=== PATIENT | female | born 1960 | race Caucasian/White ===

== ENCOUNTER 2022-08-02 11:42 | Emergency (ER) | payer OTHER ==
[~2022-08-02] VITALS: Ht 167.6 cm; Wt 68.0 kg
[~2022-08-02 11:42] MED LIST: CALCIUM + VITA1 EAC1 PO; CARVEDILOL12.5 MG PO; CEPHALEXIN500 MG PO; LEVOTHYROXINE100 MCG PO; LEVOTHYROXINE112 MCG PO; LISINOPRIL10 MG PO; MULTI-VITAMIN1 EACH PO; NORCO 5-325 TA1 EACH PO; OMEPRAZOLE20 MG PO; SIMVASTATIN10 MG PO
[2022-08-02] MEDS ORDERED: NASAL DECONGEST30 MG PO (12:18)
[2022-08-02] MEDS ORDERED: AMOXICILLIN500 MG PO (12:18)
== END 2022-08-02 12:30 | disposition home or self-care (01) ==
LOC: ED 11:42
DX: H66.93 Otitis media, unspecified, bilateral (principal); I10 Essential (primary) hypertension; K21.9 Gastro-esophageal reflux disease without esophagitis; F17.200 Nicotine dependence, unspecified, uncomplicated; Z79.899 Other long term (current) drug therapy
CPT/HCPCS: 99282; A9270

== ENCOUNTER 2024-07-18 18:01 | Inpatient (IN) | payer OTHER ==
[~2024-07-18] VITALS: Ht 167.6 cm; Wt 60.0 kg
--- NOTE | ~2024-07-18 | DS ---
[facility] [address], [place] [address] Draft ADMISSION DATE: 07/18/2024 DISCHARGE DATE: 07/24/2024 REASON FOR ADMISSION: Perforated distal gastric ulcer. HISTORY OF PRESENT ILLNESS: This 64-year-old white woman complained persistently for several weeks of an epigastric band-like pain in the upper abdomen. At approximately 6:00 p.m. the day of admission, she had worsening and quite significant epigastric and bilateral subcostal pain. She presented to the emergency room and evaluated by Dr. Stone and known to have generalized peritonitis. A CT scan of the abdomen performed showed marked inflammation in the region of the duodenum and antrum with air bubbles highly suggestive of perforated ulcer. She is admitted for further evaluation and care. Other problems include smoking and a known history of esophageal reflux for which she takes Prilosec daily. She also has hypertension and hypothyroidism. She does not drink alcohol and takes no NSAIDs. She does smoke. PERTINENT PHYSICAL EXAMINATION: GENERAL: Pleasant white woman who did not look systemically toxic. She was uncomfortable. BMI was 21.3. NECK: Trachea is midline. CHEST: Clear. HEART: Regular without murmur. ABDOMEN: Somewhat distended with marked tenderness in epigastric area and tenderness elsewhere also. LABORATORY STUDIES: Showed white count of 12.2, hematocrit 33.7, and platelets 515,000. Chem profile was notable for a potassium of 2.8, creatinine 2.63, magnesium 1.7. HOSPITAL COURSE: The patient was considered to have perforated viscus, most likely peptic ulcer. Fluid administration was undertaken as well as attempts at correction of electrolytes. She was taken to operation on July 19, 2024 at approximately 11:00 p.m. Laparoscopy was performed, which showed generalized contamination in the upper abdomen and significant inflammatory changes. An ulcer was identified approximately 2 cm proximal to the pylorus itself. It was on the lesser curve of the stomach anteriorly oriented. Consideration was made for laparoscopic Janusz patch, however, it was deemed more advisable to perform open operation and she was confirmed for an upper midline laparotomy. Operation consisted of peritoneal lavage by laparoscopic approach followed PATIENT NAME: DERICK DE LA CRUZ DISCHARGE SUMMARY DATE OF : 58 REPORT #: [id number] PHYSICIAN: TAYLOR BARNETT MD PCP: ZION KNOTT PAC REPORT IS CONFIDENTIAL AND NOT TO BE RELEASED WITHOUT AUTHORIZATION [facility] [address], [place] [address] Draft by laparotomy with an omental patch (Janusz patch) securing the perforation. A drain was placed as well. She was maintained with a nasogastric tube for approximately 48 hours at which point, it was reviewed and she was additionally treated with Carafate via the nasogastric tube and subsequently orally as well as intravenous PPI medication. Uncertain of her status for H pylori, she was treated empirically for that including amoxicillin, (Pepto-Bismol) tablets and Flagyl. Her bowel function returned and nasogastric tube was removed and she was begun carefully on a diet, which included liquids and ultimately full liquids and low-fiber diet. By the day of discharge, she is ambulating well, the drain which had showed no sign of enteric drainage had been removed and she was doing well. Of special note, she did have persistence of hypokalemia and hypomagnesemia for which potassium and magnesium supplementation was implemented. She will be discharged home anticipating a plan to see me back in the office in four weeks or so. DISCHARGE MEDICATIONS: Include: 1. Amoxicillin 500 mg p.o. b.i.d., #14. 2. Flagyl 250 mg p.o. t.i.d. with meals, quantity #21, refill none. 3. Nicotine patch 21 mg transdermal daily #30, refill 3. 4. Flomax 0.4 mg p.o. daily, #30, no refill (the patient did have urinary retention twice). 5. Pepto-Bismol tablet 262 mg tablets 524 mg p.o. q.i.d. #28, refill none. 6. Carafate 1 g p.o. q.6 hours #120, refill 2. 7. Tylenol 500 mg 1-2 p.o. q.6 hours as needed for pain, #60. 8. She will continue with her home multivitamin, Tums tablets as needed, Synthroid 112 mcg p.o. daily, simvastatin 20 mg p.o. daily, losartan/ hydrochlorothiazide 100/12.5 one p.o. daily. 9. Loperamide 2 mg p.o. daily for diarrhea. 10. Omeprazole 20 mg p.o. daily. 11. Melatonin tablet 10 mg at bedtime as needed. DISCHARGE DIAGNOSES: 1. Perforated prepyloric gastric ulcer, status post laparoscopic with conversion to open Janusz patch (omental patch and placement of drain. 2. Smoking history. 3. Hypothyroidism. 4. Dyslipidemia. 5. Reflux symptoms. PATIENT NAME: DERICK DE LA CRUZ DISCHARGE SUMMARY DATE OF : 58 REPORT #: [id number] PHYSICIAN: TAYLOR BARNETT MD PCP: ZION KNOTT PAC REPORT IS CONFIDENTIAL AND NOT TO BE RELEASED WITHOUT AUTHORIZATION [facility] [address] [place], [place] [address] Draft MD SUSI Abreu/KINSEY /[id number] cc: Maryam Silverman MD Copies: ~ PATIENT NAME: DERICK DE LA CRUZ DISCHARGE SUMMARY DATE OF : 58 REPORT #: [id number] PHYSICIAN: TAYLOR BARNETT MD PCP: ZION KNOTT PAC REPORT IS CONFIDENTIAL AND NOT TO BE RELEASED WITHOUT AUTHORIZATION
[~2024-07-18 18:01] MED LIST changes: +AMOXICILLIN500 MG PO; +NASAL DECONGEST30 MG PO
[2024-07-18] MEDS ORDERED: SIMVASTATIN20 MG PO (18:18)
[2024-07-18] MEDS ORDERED: LOSARTAN-HCTZ1 EAC2 PO (18:19)
[2024-07-18] MEDS ORDERED: PANTOPRAZOLE SODIUM 40 MG/10 ML VIAL IV ONE (18:30)
[2024-07-18] MEDS ORDERED: HYDROmorphone HCL 1 MG/ML SYR IV ONE ×2 (18:30→19:15)
[2024-07-18] MEDS ORDERED: SODIUM CHLORIDE 0.9% 1,000 ML IV ONE (18:30)
[2024-07-18] MEDS ORDERED: ondansetron HCL 4 MG/2 ML VIAL IV ONE (18:30)
[2024-07-18 18:33] LABS: BASOPHILS 0.5 % (0-2); EOSINOPHILS 2.6 % (0-6); HEMATOCRIT 33.7 % (35.0-50.0); HEMOGLOBIN 11.2 g/dL (12.0-18.0); MCH 31.7 (27-36); MCHC 33.3 g/dl (30-36); MCV 95.2 fl (81-99); NEUTROPHILS 72.9 % (39-80); PLATELET COUNT 515 K/uL (140-440); RBC 3.54 M/ul (4.3-5.7); RDW 14.2 (10.5-15.0)
[2024-07-18 18:41] LABS: ALBUMIN 4.1 g/dL (3.4-5.0); ALBUMIN/GLOBULIN RATIO 0.89 (1.1-2.4); ANION GAP 20.8 (7-21); BILIRUBIN, TOTAL 0.4 ng/dL (0.2-1.0); BUN/CREATININE RATIO 12.92 (6.0-28.6); CREATININE, SERUM 2.63 mg/dL (0.55-1.02); POTASSIUM 2.8 mmol/L (3.5-5.1); PROTEIN, TOTAL 8.7 g/dL (6.4-8.2)
[2024-07-18] MEDS ORDERED: NS + 20 mEq KCl 1,000 ML IV ONE (20:00)
[2024-07-18] MEDS ORDERED: MEROPENEM 2,000 MG in SODIUM CHLORIDE 0.9% 250 ML IV ONE (20:45)
[2024-07-18] MEDS ORDERED: MAGNESIUM SULFATE 2 GM/50 ML BAG IV ONE (20:45)
[2024-07-18] MEDS ORDERED: MEROPENEM 1,000 MG VIAL IV ONE (20:54)
[2024-07-18 21:15] LABS: ABO O; RH NEGATIVE
[2024-07-18 21:16] LABS: ANTIBODY SCREEN NEGATIVE
[2024-07-18] MEDS ORDERED: FAMOTIDINE 20 MG/ 2 ML VIAL IV ONE (21:30)
[2024-07-18] MEDS ORDERED: FAMOTIDINE 20 MG/ 2 ML VIAL IV SCH (21:35)
[2024-07-18] MEDS ORDERED: LACTATED RINGER'S 1,000 ML IV SCH (21:45)
[2024-07-18] MEDS ORDERED: MORPHINE SULFATE 10 MG/ML VIAL IV PRN (21:45)
[2024-07-18] MEDS ORDERED: ondansetron HCL 4 MG/2 ML VIAL IV PRN (21:45)
[2024-07-18] MEDS ORDERED: fentaNYL citrate 100 MCG/2 ML VIAL ONE (21:48)
[2024-07-18] MEDS ORDERED: FAMOTIDINE 20 MG/ 2 ML VIAL ONE (21:48)
[2024-07-18] MEDS ORDERED: propofoL 200 MG/20 ML VIAL ONE (21:48)
[2024-07-18] MEDS ORDERED: ROCURONIUM BROMIDE 50 MG/5 ML SYR ONE (21:48)
[2024-07-18] MEDS ORDERED: SUGAMMADEX SODIUM 200 MG/2 ML ML ONE (21:48)
[2024-07-18] MEDS ORDERED: METOCLOPRAMIDE HCL 10 MG/2 ML SDV ONE (21:48)
[2024-07-18] MEDS ORDERED: DEXAMETHASONE SOD PHOS 4 MG/ML VIAL ONE (21:48)
[2024-07-18] MEDS ORDERED: LACTATED RINGER'S 1,000 ML IV ONE ×3 (21:48→23:04)
[2024-07-18] MEDS ORDERED: KETOROLAC TROMETHAMINE 30 MG/ML VIAL ONE (21:48)
[2024-07-18] MEDS ORDERED: ondansetron HCL 4 MG/2 ML VIAL ONE (21:48)
[2024-07-18] MEDS ORDERED: SUCCINYLCHOLINE IN 0.9% NACL 200 MG/10 ML SYRINGE ONE (21:48)
[2024-07-18] MEDS ORDERED: LIDOCAINE HCL 4% 5 ML AMP ONE (21:48)
[2024-07-18] MEDS ORDERED: MIDAZOLAM HCL 2 MG/2 ML VIAL ONE (21:49)
[2024-07-18] MEDS ORDERED: MEROPENEM 1,000 MG in SODIUM CHLORIDE 0.9% 100 ML IV SCH (22:00)
[2024-07-18] MEDS ORDERED: PHENYLEPHRINE HCL 10 MG/ML VIAL ONE (22:32)
[2024-07-18] MEDS ORDERED: HYDROCORTISONE SOD SUCCINATE 100 MG/2 ML VIAL ONE (22:32)
[2024-07-18] MEDS ORDERED: DIGOXIN 500 MCG/2 ML AMP ONE (22:32)
[2024-07-18] MEDS ORDERED: MORPHINE SULFATE 10 MG/ML VIAL ONE (22:39)
[2024-07-18] MEDS ORDERED: SEVOFLURANE 250 ML BTL ONE (22:45)
[2024-07-18] MEDS ORDERED: ACETAMINOPHEN 1,000 MG/100 ML VIAL ONE (23:20)
[2024-07-18] MEDS ORDERED: ATROPINE SULFATE 1 MG/ML VIAL ONE (23:22)
[2024-07-19] VITALS (15 sets, daily range): BP systolic 96–157; BP diastolic 56–80
--- NOTE | 2024-07-19 00:15 | NUR ---
Patient arrives from OR with PACU RNs. Patient drowsy but beginning to wake. O2 titrated per PACU, PRN pain medications per PACU. Assessment complete. Dr Robb at bedside.
[2024-07-19] MEDS ORDERED: PANTOPRAZOLE SODIUM 40 MG/10 ML VIAL IV SCH (00:22)
[2024-07-19] MEDS ORDERED: MORPHINE SULFATE 10 MG/ML VIAL IV PRN (00:30)
[2024-07-19] MEDS ORDERED: droPERidol 5 MG/2 ML VIAL IV PRN (00:30)
[2024-07-19] MEDS ORDERED: PROCHLORPERAZINE EDISYLATE 10 MG/2 ML VIAL IV PRN (00:30)
[2024-07-19] MEDS ORDERED: IBLOOD GLUCOSE TEST STRIP 1 EA TEST VI PRN (00:30)
[2024-07-19] MEDS ORDERED: METOCLOPRAMIDE HCL 10 MG/2 ML SDV IV PRN (00:30)
[2024-07-19] MEDS ORDERED: fentaNYL citrate 50 MCG/ML SDV IV PRN (00:30)
[2024-07-19] MEDS ORDERED: LIDOCAINE 2% VISCOUS 6 ML SYR TOP ONE (00:30)
[2024-07-19] MEDS ORDERED: ondansetron HCL 4 MG/2 ML VIAL IV PRN (00:30)
[2024-07-19] MEDS ORDERED: NICOTINE 21 MG/24 HR 1 EA TDSY TD SCH (00:30)
[2024-07-19] MEDS ORDERED: ACETAMINOPHEN 1,000 MG/100 ML VIAL IV PRN (00:30)
[2024-07-19] MEDS ORDERED: NALOXONE HCL 0.4 MG SYR IV PRN (00:30)
[2024-07-19] MEDS ORDERED: ALBUTEROL SULFATE 0.083% 3 ML VIAL INH PRN (00:45)
[2024-07-19] MEDS ORDERED: hydrALAZINE HCL 20 MG/ML VIAL IV PRN (00:45)
[2024-07-19] MEDS ORDERED: MEROPENEM 1,000 MG in SODIUM CHLORIDE 0.9% 100 ML IV SCH ×2 (01:00→06:00)
--- NOTE | 2024-07-19 01:15 | NUR ---
Care assumed by this RN. IVF infusing per order. VSS. Patient on 4L OM. NGT to LIWS. Denies pain at this time, drowsy. IV protonix administered.
--- NOTE | 2024-07-19 01:29 | NUR ---
07/19/24 0129 Sommer Saldana 0012- PT BROUGHT TO ROOM 128 IN CCU FOR RECOVERY. PT HAS OPA IN PLACE BUT IS REACTING TO STIMLUI AND MOVING UPPER EXTREMITIES. OPA REMOVED ON ARRIVAL. O2 AT 10L PER MASK, PT IS REACTIVE BUT UNABLE TO ANSWER QUESTIONS AT THIS TIME. NG TUBE TO LEFT NARE, SET TO LOW INTERMITTENT SUCTION. ABD SOFT, NON DISTENDED. DALE DRAIN WITH SEROSANGINOUS FLUID, MIDLINE INCISION DRESSING WITH SMALL AMOUNT OF SHADOWING TO THE CENTER. TRAN CATHETER IN PLACE AND SECURED, DRAINING CLEAR YELLOW URINE. PT PLACED ON ALL MONITORS. CCU RN AT BEDSIDE. 0015- TYLENOL STARTED, PT HAVING SOME GRIMACING AND REACHING FOR ABD. PT EDUCATED ON INCISION AND ENCOURAGED TO NOT PUSH ON STOMACH AT THIS TIME. 0025- PT PLACED ON ROOM AIR. MASK APPEARS TO BE AGITATING PT WITH NG TUBE IN PLACE. WILL CONTINUE TO MONITOR. PT REPORTS PAIN WORSENING. TYLENOL CONTINUES TO INFUSE. 0032- PT O2 SATS DOWN TO 86% ON ROOM AIR. DR BARNETT AT BEDSIDE. DESPITE PT DEEP BREATHING, O2 SATS NOT IMPROVING. ORDERS RECEIVED FROM DR BARNETT. OXYMASK PLACED TO SEE IF NOT HAVING A SOLID MASK WILL HELP ALLEVIATE AGITATION. 0042- PT REPORTS 10/10 PAIN, IS RESTLESS. O2 SATS MAINTAINING ON 6L PER OXYMASK. MEDICATED WITH MORPHINE. 0057- PT REPORTS RELIEF FROM MORPHINE TO 7/10, MORE TOLERABLE BUT WOULD LIKE PAIN LOWER. MEDICATED WITH 2ND DOSE OF MORPHINE. 0103- PT REPORTS PAIN IS TOLERABLE AND SHE IS "READY FOR A NAP". ENCOURAGED PT TO COUGH AND DEEP BREATH AND SPLINT ABD WITH PILLOW. EFRA RN AT BEDSIDE, REPORT UPDATED FROM INITIAL REPORT. CARE OF PT TURNED OVER AT THIS TIME.
[2024-07-19] MEDS ORDERED: MEROPENEM 1,000 MG VIAL IV ONE (01:48)
--- NOTE | 2024-07-19 02:05 | NUR ---
IV ABX infusing per order. NGT to LIWS, no drainage noted. Miguel drain in place, serousanguinous drainage noted. Midline incision C/D/I with lidia and steri strips, adhesive surgical dressing. Pt titrated to 6L OM by RT as continuing to drop <90%.
--- NOTE | 2024-07-19 02:23 | NUR ---
Patient apneic at this time, spo2 dropping to 79%, this RN into room and patient awakened to breathe. SPO2 increases to >90% on 6L NC per RT.
--- NOTE | 2024-07-19 03:30 | NUR ---
Patient continues to have apneic periods with spo2 dropping as low as 79%, patient awakened and spo2 returns above 90%. On 6L OM.
--- NOTE | 2024-07-19 04:12 | NUR ---
In to round on patient and remind her to keep her OM on. SPO2 remains 96% while awake and O2 in place. Pt denies needs, drowsy and requires reorienting to situation when wakes.
[2024-07-19 05:36] LABS: BASOPHILS 0.1 % (0-2); EOSINOPHILS 0.1 % (0-6); HEMATOCRIT 28.5 % (35.0-50.0); HEMOGLOBIN 9.6 g/dL (12.0-18.0); LYMPHOCYTES 1.2 % (24-44); MCH 32.6 (27-36); MCHC 33.7 g/dl (30-36); MCV 96.7 fl (81-99); MONOCYTES 1.1 % (0-12); NEUTROPHILS 97.5 % (39-80); PLATELET COUNT 367 K/uL (140-440); RBC 2.95 M/ul (4.3-5.7); RDW 14.5 (10.5-15.0)
[2024-07-19] MEDS ORDERED: SUCRALFATE 1 GM TAB PT SCH (06:00)
[2024-07-19 06:02] LABS: ALBUMIN 2.9 g/dL (3.4-5.0); ALBUMIN/GLOBULIN RATIO 0.88 (1.1-2.4); ANION GAP 17.5 (7-21); BILIRUBIN, TOTAL 0.2 ng/dL (0.2-1.0); BUN/CREATININE RATIO 13.22 (6.0-28.6); CALCIUM 7.9 mg/dL (8.5-10.1); CREATININE, SERUM 1.89 mg/dL (0.55-1.02); POTASSIUM 3.5 mmol/L (3.5-5.1); PROTEIN, TOTAL 6.2 g/dL (6.4-8.2)
--- NOTE | 2024-07-19 06:10 | NUR ---
SCHEDULED MED PROVIDED. NG TUBE SUCTION PAUSED FOR MED ABSORBTION. PT RESTING IN BED, EYES CLOSED. RR EVEN, UNLABORED. CALL LIGHT IN REACH.
--- NOTE | 2024-07-19 08:45 | NUR ---
IN PATIENT'S ROOM FOR AM ASSESSMENT, AND VITALS. CHEST XRAY DONE THIS AM. PT HAS NGT TO LEFT NARE. PT ON 6 L OXYMASK UPON ARRIVAL TO ROOM BUT THIS WAS TAKEN OFF. WHEN PT DOZES BAACK TO SLEEP, SP02 DOWN TO LOW AT 86%, THEREFORE 2 L NC PLACED BACK. PT REPORTS 6/10 PAIN IN ABDOMEN AND NOTES IT IS BETTER THAN IT WAS YESTERDAY. HR IN THE 70s.
--- NOTE | 2024-07-19 09:08 | NUR ---
ALERT AND ORIENTED IN BED. HAS AN NG TUBE IN PLACE. STATES SHE LIVES IN APARTMENT WITH GRANDSON AND HIS GIRLFRIEND. SHE HAS NO STAIRS. SHE STATES SHE HAS NO DME. SHE IS ABLE TO DRIVE AT [place]. PATIENT HAS NO FINANCIAL ISSUES WITH PAYING UTILITIES, BUYING FOOD OR OBTAINING MEDICATIONS. STATES SHE HAS NO KNOWN NEEDS FOR DC AT THIS TIME.
--- NOTE | 2024-07-19 09:57 | NUR ---
REPORT FROM ROBERTA CCU RN. PATIENT MOVED VIA BED TO MED SURG ROOM 109.
[2024-07-19 10:25] LABS: BILIRUBIN, URINE NEGATIVE (negative); BLOOD/HGB, URINE MODERATE (Negative); KETONE, URINE NEGATIVE (Negative); LEUK ESTERASE, URINE SMALL (negative); NITRITE, URINE NEGATIVE (negative)
--- NOTE | 2024-07-19 10:29 | NUR ---
PT HAND OFF RECEIEVED FROM M/S CHARGE. PT ORIENTED TO ROOM AND THIS RN. PT NG TUBE PLACEMENT CHECKED. PT SCDS INPLACE WITH WITH IV PATENT AND FLUIDS RUNNING PT REQUESTED SOCKS AND HAS NO OTHER CONCERNS AT THIS TIME. PT CALL LIGHT WITHIN REACH.
[2024-07-19 10:33] LABS: BACTERIA, URINE RARE /hpf (negative); CRYSTALS, URINE NONE SEEN (0-1+); EPITHELIAL CELLS, URINE TRANSITIONAL 1+ /lpf (0-1+); WHITE BLOOD CELLS, URINE 21-40 /HPF (0-5)
[2024-07-19 10:34] LABS: CASTS, URINE NONE SEEN \\lpf; COLLECTION TYPE, URINE CATH; REFLEX CULTURE, URINE Yes (No)
--- NOTE | 2024-07-19 11:00 | NUR ---
ANIBAL AND ASSOCIATE IN TO SEE PT AND DISCUSS PLAN OF CARE. PT'S ICE CHIPS REFRESHED PER REQUEST. CALL LIGHT WITHIN REACH.
--- NOTE | 2024-07-19 11:01 | NUR ---
PT'S O2 SAT ON CPOX 98% ON 2 L PER NC. O2 DECREASED TO 1 L PER NC AT THIS TIME.
--- NOTE | 2024-07-19 13:40 | NUR ---
UR CLINICAL REVIEW: [facility] 07/18/24 @ 2136 ORDER [facility] FAXED FOR REVIEW DISCHARGE TO HOME WHEN STABLE 07/21/24
--- NOTE | 2024-07-19 14:05 | NUR ---
VISITED DURING SPIRITUAL CARE ROUNDS. PT APPEARED TO BE SLEEPING. DID NOT DISTURB. PROVIDED PRAYER.
--- NOTE | 2024-07-19 14:11 | NUR ---
PATIENT IN BED AT THIS TIME. PODIATRY DOCTOR CHARTED VITALS AND I&O'S. CALL LIGHT WITHIN REACH, NO FURTHER NEEDS AT THIS TIME.
--- NOTE | 2024-07-19 15:39 | NUR ---
CALL TO SURGERY TO SEND DR. BARNETT A MESSAGE ABOUT PATIENT'S ABDOMINAL PAIN.
--- NOTE | 2024-07-19 15:50 | NUR ---
THIS NURSE IN TO ASSESS PT, PT C/O INCREASED PAIN. DELMAR INTACT DRAINING SM AMT OF SEROSANGUANOUS DRAINAGE. MIDLINE ABD INCISION DRESSING WITH SM AMT OF OLD SEROSANGUANOUS DRAINAGE. NG TUBE SECURED AND DRAINING SM AMT OF YELLOW/GREEN DRAINAGE PER LIWS. CALL LIGHT WITHIN REACH. FAMILY IN ROOM.
--- NOTE | 2024-07-19 16:00 | NUR ---
DR ANIBAL FLORES IN TO ASSESS PT D/T INCREASED PAIN. NO NEW ORDERS AT THIS TIME. DAT LIGHT WITHIN REACH.
--- NOTE | 2024-07-19 16:35 | NUR ---
PHARMACIST IN TO SPEAK WITH PT REGARDING MEDICATIONS. FAMILY AT BEDSIDE. CALL LIGHT WITHIN REACH. PT TAKING ICE CHIPS SPARINGLY FOR COMFORT.
[2024-07-19] MEDS ORDERED: IMODIUM A-D2 M2 PO (16:49)
[2024-07-19] MEDS ORDERED: PRILOSEC OTC20 MG PO (16:49)
[2024-07-19] MEDS ORDERED: MELATONIN10 M2 PO (16:49)
--- NOTE | 2024-07-19 16:49 | NUR ---
MED REC COMPLETE
--- NOTE | 2024-07-19 18:10 | NUR ---
PT UP AMBULATING IN QUIROZ WITH FWW AND 1 PERSON ASSIST TO MANAGE IV. PT AMBULATED TO THE END OF THE QUIROZ AND BACK AND TOLERATED WELL. PT ASSISTED BACK TO BED. NG RETURNED TO LIWS, DELMAR INTACT, O2 AT 1.5L PER NC WITH SAT 92%. PT HAS NO REQUESTS AT THIS TIME. CALL LIGHT WITHIN REACH. SCDS ON.
--- NOTE | 2024-07-19 18:56 | NUR ---
PATIENT IN BED AT THIS TIME. CASINO HOST CHARTED VITALS AND I&O'S. CALL LIGHT WITHIN REACH, NO FURTHER NEEDS AT THIS TIME.
--- NOTE | 2024-07-19 19:35 | NUR ---
REPORT RECEIVED FROM ROSAMARIA MELTON. pt RESTING IN THE BED. pt DENIES ANY NEEDS AT THIS TIME. CALL LIGHT WITHIN REACH.
--- NOTE | 2024-07-19 19:58 | HP ---
[facility] [address], [place] [address] Signed ADMISSION DATE: 07/18/2024 EMERGENCY ROOM PHYSICIAN: Dr. Stone. PROBLEM: Probable perforated duodenal ulcer. HISTORY OF PRESENT ILLNESS: This 64-year-old white woman has had complaints persistently for several weeks of a bandlike pain in the upper abdomen. At approximately 6:00 p.m., she had worsening in quite significant epigastric and bilateral subcostal pain. She presented to the emergency room. She was evaluated by Dr. Best and noted to have generalized peritonitis. A CT scan of the abdomen was performed, which showed marked inflammation in the region of the duodenum and antrum of the stomach with air bubbles highly suggestive of perforated ulcer. She was admitted for further evaluation and care. Other problems include hypertension, gastroesophageal reflux and history of hypothyroidism. She has undergone thyroidectomy in the past as well as bilateral tubal ligation. She does not use alcohol. Uses no drugs on a routine basis. She does smoke. MEDICATIONS: Her current medicines include Sudafed, simvastatin, losartan, lisinopril, a multivitamin, calcium supplement, and Synthroid 112 mcg daily. SOCIAL HISTORY: She lives alone though some grandchildren have come to live with her lately. She works at an [employer] locally. She is accompanied by her son. REVIEW OF SYSTEMS: She denies any shortness of breath or chest pain. Her main pain is bandlike across the upper abdomen. PHYSICAL EXAMINATION: GENERAL: Pleasant white woman, who does not look systemically toxic. It is uncomfortable. Her BMI is 21.3. NECK: Trachea is midline. CHEST: Shows normal respiratory excursion. Lungs are clear. HEART: Regular without murmur. ABDOMEN: Somewhat distended. She has marked tenderness in epigastric area, but tenderness throughout the abdomen as well. Electronically Signed By: TAYLOR BARNETT MD 07/19/241957 PATIENT NAME: DERICK DE LA CRUZ HISTORY AND PHYSICAL DATE OF : 58 REPORT #: [id number] PHYSICIAN: TAYLOR BARNETT MD PCP: ZION KNOTT PAC REPORT IS CONFIDENTIAL AND NOT TO BE RELEASED WITHOUT AUTHORIZATION [facility] [address], [place] [address] Signed EXTREMITIES: Show no clubbing, cyanosis, or edema. LABORATORY STUDIES: Show a white count of 12.2, hematocrit 33.7, platelets 515,000. Chem profile notable for a potassium of 2.8 with potassium administration underway. Her creatinine is 2.63. Her magnesium is 1.7. Magnesium repletion underway as well. Liver enzymes are normal. Lipase 44. Urinalysis pending. CT scan was reviewed in detail with previous findings noted. Official report describes irregular and mural thickening of the gastric antrum and proximal duodenum with hypodensity in the anterior wall and trace free air in the gastrohepatic space concerning for perforated ulcer though location not specified. She had small volume of the intraabdominal fluid. ASSESSMENT AND PLAN: The patient has had persistent upper abdominal pain highly suggestive of peptic disease and now has exacerbation versus the situation with marked inflammation of the upper abdomen including the duodenum and antrum. This may represent a perforated duodenal ulcer or even a gastric ulcer for which operative management is appropriate. Her creatinine is elevated, likely related to dehydration and potassium low, and magnesium also low, both being repleted at this time. Broad-spectrum antibiotics have been initiated (meropenem and Pepcid) administered and plans are being made for laparoscopy and peritoneal lavage, possible laparoscopic management of perforated viscus. This may require open operation. The risk of bleeding, infection, failure of diagnosis, missed diagnosis, need for other indicated procedures and so forth was reviewed in detail. She and her son understand and wished to proceed. MD SUSI Abreu/OGL /[id number] cc: Dr. Chase Lopez Electronically Signed By: TAYLOR BARNETT MD 07/19/241957 PATIENT NAME: DERICK DE LA CRUZ HISTORY AND PHYSICAL DATE OF : 58 REPORT #: [id number] PHYSICIAN: TAYLOR BARNETT MD PCP: ZION KNOTT PAC REPORT IS CONFIDENTIAL AND NOT TO BE RELEASED WITHOUT AUTHORIZATION [facility] [address] [place] [id number] Signed Copies: ~ Electronically Signed By: TAYLOR BARNETT MD 07/19/241957 PATIENT NAME: DERICK DE LA CRUZ HISTORY AND PHYSICAL DATE OF : 58 REPORT #: [id number] PHYSICIAN: TAYLOR BARNETT MD PCP: ZION KNOTT PAC REPORT IS CONFIDENTIAL AND NOT TO BE RELEASED WITHOUT AUTHORIZATION
[2024-07-19] MEDS ORDERED: FAMOTIDINE 20 MG/ 2 ML VIAL IV SCH (21:00)
--- NOTE | 2024-07-19 21:00 | NUR ---
ASSESSMENT AND VITAL SIGNS DONE. SCHEDULED MEDS ADMINISTERED. NG TUBE SET TO LOW INTERMITTENT SUCTION. TRAN EMPTIED. CATHETER CARE DONE. pt DENIES ANY OTHER NEEDS AT THIS TIME. CALL LIGHT WITHIN REACH. IVF INFUSING PER ORDER.
--- NOTE | 2024-07-19 23:24 | NUR ---
pt REQUESTS WARM PACK FOR HER BACK. pt RESTING IN THE BED. pt DENIES ANY OTHER NEEDS AT THIS TIME. CALL LIGHT WITHIN REACH.
[2024-07-20] VITALS (10 sets, daily range): BP systolic 157–179; BP diastolic 68–89
--- NOTE | 2024-07-20 01:20 | NUR ---
IN RM TO HANG IV ABX. pt REQUEST PRN PAIN MEDS. pt C/O 01/10 PAIN. PRN PAIN MEDS ADMINISTERED. pt DENIES ANY OTHER NEEDS AT THIS TIME. CALL LIGHT WITHIN REACH.
--- NOTE | 2024-07-20 01:30 | NUR ---
MD CALLED DUE TO pt NEEDING TO FREQUENTLY GET UP TO PEE. pt HAVING A POST RESIDUAL VOID OF 995 mL. NEW ORDERS PLACED FOR TRAN AND FOR THE CATHETER TO REMAIN IN PLACE.
--- NOTE | 2024-07-20 03:42 | NUR ---
pt RESTING IN THE BED WITH EYES CLOSED. RR EVEN AND UNLABORED. CALL LIGHT WITHIN REACH.
[2024-07-20 05:49] LABS: BASOPHILS 0.2 % (0-2); EOSINOPHILS 4.2 % (0-6); HEMATOCRIT 26.7 % (35.0-50.0); HEMOGLOBIN 9.1 g/dL (12.0-18.0); LYMPHOCYTES 8.1 % (24-44); MCH 32.6 (27-36); MCHC 34.1 g/dl (30-36); MCV 95.5 fl (81-99); MONOCYTES 3.4 % (0-12); NEUTROPHILS 84.1 % (39-80); PLATELET COUNT 379 K/uL (140-440); RBC 2.79 M/ul (4.3-5.7); RDW 14.8 (10.5-15.0)
--- NOTE | 2024-07-20 05:53 | NUR ---
pt RESTING IN THE BED. ASSESSMENT AND VITAL SIGNS DONE. RESTED THROUGH OUT THE NIGHT. pt C/O 8/10 PAIN. PRN PAIN MEDS ADMINISTERED. pt DENIES ANY OTHER NEEDS AT THSI TIME. CALL LIGHT WITHIN REACH. DELMAR DRAINED.
[2024-07-20 06:14] LABS: ANION GAP 17.7 (7-21); BUN/CREATININE RATIO 14.52 (6.0-28.6); CALCIUM 8.5 mg/dL (8.5-10.1); CREATININE, SERUM 1.79 mg/dL (0.55-1.02); POTASSIUM 2.7 mmol/L (3.5-5.1)
--- NOTE | 2024-07-20 07:23 | NUR ---
RECIEVED MORNING REPORT FROM GERONIMO ACUÑA. PT LAYING IN BED SLEEPING WITH EYES CLOSED AND CHEST RISE EQUAL BILAT. RN REPORTED PT DID RECIEVE MEDICATIONS FOR PAIN CONTROL EARLY THIS MORNING (SEE EMAR) PT CURRENTLY HAS NO NEEDS AT THIS TIME. PT CALL LIGHT WITHIN REACH.
[2024-07-20] MEDS ORDERED: HYDROmorphone HCL 2 MG TAB PO PRN (08:45)
[2024-07-20] MEDS ORDERED: ACETAMINOPHEN 500 MG TAB PO PRN (08:45)
[2024-07-20] MEDS ORDERED: POTASSIUM CHLORIDE 40 MEQ in DEXTROSE 5% 250 ML IV ONE (08:45)
[2024-07-20] MEDS ORDERED: BISMUTH SUBSALICYLATE 262 MG CHEW PO SCH (09:00)
[2024-07-20] MEDS ORDERED: PANTOPRAZOLE SODIUM 40 MG TABEC PO SCH (09:00)
[2024-07-20] MEDS ORDERED: AMOXICILLIN 500 MG CAP PO SCH (09:00)
--- NOTE | 2024-07-20 09:36 | NUR ---
PATIENT IN BED RESTING AT THIS TIME. VITALS AND I&O'S DONE AND CHARTED. RN IN ROOM AT THIS TIME. CALL LIGHT IN REACH. NO FURTHER NEEDS AT THIS TIME.
--- NOTE | 2024-07-20 09:41 | NUR ---
Spoke with Kaci. She denies needs. NG tube was removed by Dr. nelson. Vivar remains in place. Pt denies needs. Plans on dc to go to home with grandson and his girlfriend to her home. They all live together. Pt states jillian will assist her if needed. Son lives 2 houses away.
--- NOTE | 2024-07-20 09:42 | NUR ---
CLEO FROM DISCHARGE PLANNING IN TO VISIT WITH PT. PT STATED PAIN WAS 7/10, MED GIVEN. DR BARNETT IN TO SEE PT EARLIER AND DC'D PT'S NG TUBE. PT HAS O2 ON AT 3.5L PER NC. ENCOURAGING PT TO USE HER INCENTIVE SPIROMETER HOURLY. PT SITTING UP IN BED WITH NO REQUESTS AT THIS TIME. PT HAS DELMAR TO R) SIDE DRAINING SEROSANGUANOUS DRAINAGE. CALL LIGHT WITHIN REACH.
--- NOTE | 2024-07-20 10:44 | NUR ---
VISITED DURING SPIRITUAL CARE ROUNDS. PT IN OVERALL GOOD SPIRITS, NO IMMEDIATE SIGNS OF ANXIETY. TRAVELING ACCOUNTANT PROVIDED SUPPORTIVE PRESENCE, HOSPITALITY, PRAYER, FACILITATED INTERACTION WITH THERAPY ANIMAL. PT EXPRESSED GRATITUDE, NICKOLAS, HOPE.
--- NOTE | 2024-07-20 11:00 | NUR ---
TRAN CATHETER DC'D, PT TOLERATED WELL. PT UP AMBULATING IN QUIROZ, WALKED TO END OF QUIROZ AND BACK WITH FWW, AND O2 TOLERATED WELL. PT O2 AT 5L PER NC WITH O2 SAT 92%. PT ASSISTED TO SIT IN CHAIR WITH LEGS ELEVATED. NO REQUESTS AT THIS TIME. CALL LIGHT WITHIN REACH.
--- NOTE | 2024-07-20 11:40 | OR ---
[facility] [address], [place] [address] Signed DATE OF OPERATION: 07/19/2024 SURGEON: Taylor Barnett MD TIME: 12:03 a.m. PREOPERATIVE DIAGNOSIS: Perforated duodenal ulcer with generalized peritonitis. POSTOPERATIVE DIAGNOSIS: Perforated prepyloric ulcer with generalized peritonitis. PROCEDURES: 1. Laparoscopy with peritoneal lavage. 2. Conversion to laparotomy with omental patch of 1 cm prepyloric ulcer (Janusz patch). ANESTHESIA: General endotracheal, Taylor Block CRNA. INDICATIONS: This 64-year-old white woman has had upper abdominal pain in a bandlike configuration for the past week or more. She had sudden onset of severe pain this evening at about 6 o'clock and presented to the emergency room. Evaluation by Dr. Stone included a CT scan of the abdomen showing marked inflammation at the region of the duodenum and antrum of the stomach with free air bubbles. She had generalized peritonitis on clinical exam. She has been fluid resuscitated, given intravenous antibiotic meropenem and now to undergo operation. Quite notably, she had dehydration with a creatinine of 2.65, a low potassium of 2.7 and magnesium of 1.7. Resuscitation and correction of these deficits have been undertaken concurrent to preparation for the OR. The patient and her son understand the risk of bleeding, infection, failure to cure the problem by the intended method of Janusz patch, and other unforeseen complications and they wished to proceed. FINDINGS: A laparoscopic evaluation was undertaken showing considerable amount of turbid intraabdominal fluid. A perforation of the prepyloric area was noted about 1 cm in size. It was about 2 cm proximal to the pylorus proper.Given the extent of inflammation so forth, a laparoscopic Janusz patch was deemed Electronically Signed By: TAYLOR BARNETT MD 07/20/24 1140 PATIENT NAME: DERICK DE LA CRUZ OPERATIVE REPORT DATE OF : 58 REPORT #: [id number] PHYSICIAN: TAYLOR BARNETT MD PCP: ZION KNOTT PAC REPORT IS CONFIDENTIAL AND NOT TO BE RELEASED WITHOUT AUTHORIZATION [facility] [address], [place] [address] Signed inadvisable on this occasion, therefore, conversion of open laparotomy was performed. This allowed for secure placement of a Janusz patch over the perforation. There is secondary inflammation of the gallbladder and liver edges as might be expected. A drain was placed. Leak testing showed no sign of leakage of air upon submersion of the stomach and duodenum with insufflation of the nasogastric tube. DESCRIPTION OF PROCEDURE: The patient was brought to the operating room, given a general endotracheal anesthetic. A Vivar catheter was placed. Preoperative antibiotics were given as described. The abdomen was prepared for chlorhexidine solution and draped sterilely. An infraumbilical incision was made and using an open Víctor cannula technique pneumoperitoneum was achieved to a level of 14 mmHg of carbon dioxide gas. Intra-abdominal inspection showed no sign of fecal contamination, but a considerable amount of inflammatory fluid was noted in the upper abdomen. Irrigation was undertaken. The liver edge obscuring the lesser sac was elevated and a perforation of the prepyloric area was noted. It was estimated to be about 1 cm in size. Considerable inflammatory changes and plastic like texture of the distal antrum and pylorus was noted. Additional trocar was placed to allow for manipulation and irrigation. Given the extent of her problem it was less likely that a laparoscopic approach would be as effective as an open one and on that basis, conversion to open operation was undertaken. The trocars were removed. The trocar incisions were extended to the upper midline laparotomy. A Bookwalter retractor was placed. Irrigation was undertaken and better characterization of the perforation noted. A rubberized thickened area of the antrum and pylorus was noted. Mobilization of a segment of viable omentum off the transverse colon was undertaken securing it well from a vascular perspective. It was completely viable. The omentum was used to patch the hole without closure of the hole as it would not likely hold suture for closure anyway. Approximately eight such 2-0 silk sutures were used to patch the perforation. Submersion of the repair under saline with insufflation through the nasogastric tube was undertaken. This did show some leakage and therefore, additional sutures were secured with the patch. Ultimately, a complete occlusion of the defect was noted. Distention of the stomach to approximately 250 mL of air was accomplished. The nasogastric tube was applied to suction and additional irrigation undertaken more fully. Through a right-sided stab incision a 7 mm flat cheyenne drain was placed. The drain was secured to the skin with nylon suture and trimmed to appropriate length and placed cephalad to the omental patch. The midline fascia was reapproximated with running bidirectional #1 PDS suture. The subcutaneous tissue was irrigated and the skin closed with a skin clip device. An Acticoat dressing was applied. She was extubated in the operating room and taken to recovery room in good condition having suffered no complication. Blood loss was less than 50 mL. Sponge, needle, and instrument counts reported as correct x3. Electronically Signed By: TAYLOR BARNETT MD 07/20/24 1140 PATIENT NAME: DERICK DE LA CRUZ OPERATIVE REPORT DATE OF : 58 REPORT #: [id number] PHYSICIAN: TAYLOR BARNETT MD PCP: ZION KNOTT PAC REPORT IS CONFIDENTIAL AND NOT TO BE RELEASED WITHOUT AUTHORIZATION [facility] [address] [address] Signed MD SUSI Abreu/KINSEY /[id number] cc: Dr. Danuta Stone [address] [place], [place] Copies: ZION KNOTT ~ Electronically Signed By: TAYLOR BARNETT MD 07/20/24 1140 PATIENT NAME: DERICK DE LA CRUZ OPERATIVE REPORT DATE OF : 58 REPORT #: [id number] PHYSICIAN: TAYLOR BARNETT MD PCP: ZION KNOTT PAC REPORT IS CONFIDENTIAL AND NOT TO BE RELEASED WITHOUT AUTHORIZATION
[2024-07-20] MEDS ORDERED: metroNIDAZOLE 250 MG TAB PO SCH (12:00)
--- NOTE | 2024-07-20 12:02 | NUR ---
RT IN TO SEE PT. PT C/O PAIN 01/10 TO ABD, REQUESTED ADDITIONAL PAIN MEDICATION. MED GIVEN. PT SITTING UP IN CHAIR WITH LEGS ELEVATED AND CALL LIGHT WITHIN REACH.
--- NOTE | 2024-07-20 13:04 | NUR ---
PT SITTING UP IN CHAIR, JUST FINISHED LUNCH. PT USING ACAPELLA. O2 DECREASED TO 3L PER NC, O2 SAT 96%. PT STATES HER PAIN HAS DECREASED TO 2/10 AND THAT SHE IS COMFORTABLE AT THIS TIME. CALL LIGHT WITHIN REACH.
[2024-07-20] MEDS ORDERED: SUCRALFATE 1 GM TAB PO SCH (14:00)
[2024-07-20] MEDS ORDERED: MEROPENEM 500 MG in SODIUM CHLORIDE 0.9% 100 ML IV SCH (14:00)
--- NOTE | 2024-07-20 14:17 | NUR ---
PATIENT SITTING UP IN CHAIR AT THIS TIME. VITALS AND I&O'S DONE AND CHARTED. CALL LIGHT IN REACH. NO FURTHER NEEDS AT THIS TIME.
--- NOTE | 2024-07-20 14:27 | NUR ---
CONTINUING TO ENCOURAGE PT TO USE HER ACAPELLA, PT COMPLIANT. OXYGEN DECREASED TO 2L PER NC. 02 SAT 96%.
--- NOTE | 2024-07-20 15:50 | NUR ---
PT O2 SAT 97%, OXYGEN DECREASED TO 1L PER NC. PT SITTING UP IN CHAIR WITH LEGS ELEVATED. CALL LIGHT WITHIN REACH, DAUGHTER AT BEDSIDE. PT STATES PAIN IS TOLERABLE AT THIS TIME.
--- NOTE | 2024-07-20 17:02 | NUR ---
PT VOIDED 100 ML IN HAT AFTER AMBULATING TO THE RESTROOM. PT COMPLAINED OF LOWER ABD PRESSURE. THIS RN BLADDER SCANNED PT AND REVEALED 752ML OF URINE. PT THEN AMBULATED TO THE RESTROOM. PT INSTRUCTED TO PULL CORD WHEN READY.
--- NOTE | 2024-07-20 17:38 | NUR ---
PT AMBULATED FROM RESTROOM TO BED. PT WAS ABLE TO VOID 250ML IN THE HAS AND 1 UNMEASURED VOID. PT ALSO HAD 1 UNMEASURED BM. PT REPORTS THAT SHE FEELS LESS PRESSURE IN ABD AND IS NOW IN BED WITH FAMILY IN THE ROOM. PT CALL LIGHT WITHIN REACH.
--- NOTE | 2024-07-20 18:03 | NUR ---
PATIENT BACK TO BED FROM BATHROOM, SBA. FAMILY IN ROOM. VITALS AND I&O'S DONE AND CHARTED. CALL LIGHT IN REACH. NO FURTHER NEEDS AT THIS TIME.
--- NOTE | 2024-07-20 19:05 | NUR ---
REPORT RECEIVED FROM BROOK MELTON. pt RESTING IN THE BED. pt UP TO THE BR WITH INTERIOR DESIGN COORDINATOR, SBA FOR LINE/TUBE MANAGEMENT. pt BACK TO BED. pt DENIES ANY OTHER NEEDS AT THIS TIME. CALL LIGHT WITHIN REACH.
--- NOTE | 2024-07-20 20:30 | NUR ---
ASSESSMENT AND VITAL SIGNS DONE. pt UP TO THE BR, SBA FOR LINE/TUBE MANAGEMENT. pt BACK TO BED. MIDLINE INCISION DRESSING INTACT WITH OLD DRAINAGE ON DRESSING. DELMAR DRAIN NOT LEAKING AT THIS TIME. NO NRE DRAINAGE IN DELMAR. SS FLUID IN TUBE. pt DENIES ANY OTHER NEEDS AT THIS TIME. CALL LIGHT WITHIN REACH.
--- NOTE | 2024-07-20 21:52 | NUR ---
CALL LIGHT ANSWERED. PT NEEDED TO USE BATHROOM. NUCLEAR EQUIPMENT RESEARCH ENGINEER 1PA TO BATHROOM. PT VOIDED AND HAD SMALL BM. PT ASSISTED BACK TO BED. PT ASKED OR A PAIN MED. RN NOTIFED. PT STATES NO FURTHER NEEDS AT THIS TIME. CALL LIGHT WITHIN REACH.
--- NOTE | 2024-07-20 22:27 | NUR ---
BATHROOM CALL LIGHT ANSWERED. PT DONE USING BATHROOM. UTILITY SYSTEMS REPAIRER OPERATOR ASSISTED PT BACK TO BED. PT STATES NO FURTHER NEEDS AT THIS TIME. OUTPUT MEASURED AND HAT EMPTIED. PT CALL LIGHT WITHIN REACH.
[2024-07-20] MEDS ORDERED: LIDOCAINE 2% VISCOUS 6 ML SYR TOP ONE (23:45)
[2024-07-21] VITALS (9 sets, daily range): BP systolic 146–169; BP diastolic 65–93
--- NOTE | 2024-07-21 01:00 | NUR ---
TRAN INSERTED. WITH 1350 mL EMPTIED AFTERWARDS. NEW IV PLACED, DUE TO BOTH IV'S GOING BAD. pt DENIES ANY OTHER NEEDS AT THIS TIME. CALL LIGHT WITHIN REACH.
--- NOTE | 2024-07-21 01:17 | NUR ---
PT RESTING WITH EYES CLOSED. AWAKENS EASILY. 20G IV PLACED IN LEFT FOREARM X 1 ATTEMPT. PT REX WELL. WARM BLANKETS PROVIDED. PRIMARY RN AWARE.
--- NOTE | 2024-07-21 02:25 | NUR ---
IN RM TO ADMINISTER pt SCHEDULED MEDS. pt DENIES ANY NEEDS AT THIS TIME. CALL LIGHT WITHIN REACH.
--- NOTE | 2024-07-21 03:49 | NUR ---
pt RESTING IN THE BED WITH EYES CLOSED. RR EVEN AND UNLABORED. CALL LIGHT WITHIN REACH.
--- NOTE | 2024-07-21 05:20 | NUR ---
CALL LIGHT ANSWERED. PT STATED THAT SHE WAS HAVING HEART BURN AND HAD A HEADACHE. ORNAMENTAL METAL ERECTOR APPRENTICE NOTIFED RN AND OBTAINED VITALS AND I&O. TRAN BAG EMPTIED. PT ICE WATER REFILLED. PT STATES NO FURTHER NEEDS AT THIS TIME. CALL LIGHT WITHIN REACH.
--- NOTE | 2024-07-21 05:35 | NUR ---
pt C/O ACID REFLUX AND NAUSIA. PRN MEDS AND SCHEDULED MEDS ADMINISERED. pt DENIES ANY OTHER NEEDS AT THIS TIME. CALL LIGHT WITHIN REACH.
[2024-07-21 05:57] LABS: BASOPHILS 0.3 % (0-2); HEMATOCRIT 30.5 % (35.0-50.0); HEMOGLOBIN 10.7 g/dL (12.0-18.0); LYMPHOCYTES 9.1 % (24-44); MCH 32.8 (27-36); MCHC 35.1 g/dl (30-36); MCV 93.2 fl (81-99); MONOCYTES 3.6 % (0-12); PLATELET COUNT 451 K/uL (140-440); RBC 3.27 M/ul (4.3-5.7); RDW 14.3 (10.5-15.0)
[2024-07-21 06:08] LABS: ANION GAP 13.8 (7-21); CALCIUM 9.1 mg/dL (8.5-10.1); POTASSIUM 2.8 mmol/L (3.5-5.1)
[2024-07-21 06:13] LABS: BUN/CREATININE RATIO 14.28 (6.0-28.6); CREATININE, SERUM 1.26 mg/dL (0.55-1.02)
--- NOTE | 2024-07-21 07:15 | NUR ---
PT REPORT RECIEVED FROM GERONIMO ACUÑA. PT LAYING IN BED WITH EYES CLOSED CHEST RISE EQUAL BILAT. PT CALL LIGHT WITHIN REACH NO CONCERNS AT THIS TIME.
--- NOTE | 2024-07-21 08:20 | NUR ---
PT SITTING UP IN BED AWAKE RT IN ROOM WITH PT TESTING A ROOM AIR OXYGEN TEST. PT TOLERATING WELL. PT HAS CALL LIGHT WITHIN REACH NO CONCERNS AT THIS TIME.
--- NOTE | 2024-07-21 09:20 | NUR ---
PT SITTING UPRIGHT IN BED WATCHING TV PT HAS NO CONCERNS AT THIS TIME. PT EXPRESSES SHE IS NOT I ANT DISCOMFORT AT THE MOMENT. CALL LIGHT WITHIN REACH.
--- NOTE | 2024-07-21 09:40 | NUR ---
Spoke with Kaci. She states she doesn't feel as well today. Her catheter needed to be replaced. She would like a hairbrush. Sealed hairbrush provided.
--- NOTE | 2024-07-21 10:40 | NUR ---
PT LAYING IN BED WITH EYES CLOSED CHEST RISE EQUAL BILAT PT IS STILL ON ROOM AIR AND 02 SAT AT 95. PT HAS NO CONCERNS AT THIS TIME AND CALL LIGHT WITHIN REACH.
--- NOTE | 2024-07-21 11:11 | NUR ---
PT SITTING IN BED WITH EYES CLOSED CHEST RISE EQUAL BIALT. PT HAS NO CONCERNS AT THIS TIME CALL LIGHT WITHIN REACH.
--- NOTE | 2024-07-21 11:45 | NUR ---
PT LAYING IN BED WITH EYES CLOSED CHEST RISE EQUAL BILAT. PT O2 SAT 93 CPOX ON RA. PT HAS NO CONCERNS AT THIS TIME CALL LIGHT WITHIN REACH.
[2024-07-21] MEDS ORDERED: POTASSIUM CHLORIDE 40 MEQ,LIDOCAINE HCL 1% 40 MG in DEXTROSE 5% 250 ML IV ONE (12:15)
[2024-07-21] MEDS ORDERED: TAMSULOSIN HCL 0.4 MG CAP PO SCH (12:15)
[2024-07-21] MEDS ORDERED: MAGNESIUM SULFATE 2 GM/50 ML BAG IV ONE (12:15)
--- NOTE | 2024-07-21 12:19 | NUR ---
THIS RN AND GERONIMO MCCALLUM IN PT ROOM WITH MD BARNETT AND MD BARNETT. INSTRUCTED PT TO AMBULATE MUCH TOLLERABLE MINIMUM EVERY 2 HRS. PT MOVED TO CHAIR FOR LUNCH AND TOLERATED WELL PT STILL ON ROOM AIR SAT 92. COMMUNITY DEVELOPMENT OFFICER INSTRUCTED TO WALK PT AFTER LUNCH. PT CALL LIGHT WITHIN REACH.
--- NOTE | 2024-07-21 12:30 | NUR ---
PT SITTING IN CHAIR PT FINISHED LUNCH AND WAITING FOR AVAILIBLE INCOME TAX ANALYST TO HELP THEM AMBULATE. PT CURRENTLY HAS NO NEEDS AT THIS TIME CALL LIGHT WITHIN REACH.
--- NOTE | 2024-07-21 12:38 | NUR ---
UR CLINICAL REVIEW: [facility] [place] FOR GENERAL SURG GRG WITH VARIANCE FOR DISCHARGE [employer] [facility] [employer] INPT 07/18/24 @ 2136 ORDER MATCHES REG CLINICALS FAXED FOR REVIEW DISCHARGE TO HOME WHEN STABLE 07/24/24
--- NOTE | 2024-07-21 14:23 | NUR ---
PT NOT AVAILABLE FOR VISIT. PROVIDED PRAYER.
--- NOTE | 2024-07-21 14:30 | NUR ---
PT AMBULATED WITH HELP FROM ELIOT CERRATO. PT TOLERATED AMBULATION WELL WITH NO COMPLAINTS PT RETURNED TO BED AND IS NOW RESTING COMFORTABLY WATCHING TV PT HAS NO CONCERNS AT THIS TIME CALL LIGHT WITHIN REACH.
--- NOTE | 2024-07-21 14:44 | NUR ---
PT SITTING IN CHAIR PT FINISHED LUNCH AND WAITING FOR AVAILIBLE PELLETIZER TO HELP THEM AMBULATE. PT CURRENTLY HAS NO NEEDS AT THIS TIME CALL LIGHT WITHIN REACH.
--- NOTE | 2024-07-21 15:20 | NUR ---
SPOKE WITH CARLOS, PHARMACY REGARDING COMPATABILITY WITH MEROPENEM AND LR. ALAMO TO ADMINISTER AT THE Y-SITE.
--- NOTE | 2024-07-21 15:36 | NUR ---
ADMINISTERED PT MEDICATION PT LAYING IN BED WITH TOLERATED PAIN AT THE MOMENT PT HAS NO CURRENT NEEDS PT INFORMED SHE WILL NEED TO WALK AGAIN SOON PT WAS AGRGEEABLE. PT CALL [facility] WITH IN REACH
--- NOTE | 2024-07-21 16:05 | NUR ---
ELIOT CERRATO ATTEMPTED TO WALK PT. PT HAS FAMILY AND REQUESTING TO WAIT TO WALK.
--- NOTE | 2024-07-21 16:10 | NUR ---
PATIENT HAS A VISITOR IN HER ROOM.
--- NOTE | 2024-07-21 17:47 | NUR ---
PT SITTING IN BED EATING DINNER. SPOKE WITH PT ABOUT AMBULATING AFTER DINNER AND PT WAS AGREEABLE. PT HAS NO CONCERNS AT THIS TIME, CALL LIGHT WITHIN REACH.
--- NOTE | 2024-07-21 18:43 | NUR ---
PT AMBULATED ASSISTED BY CUT OFF SAW OPERATOR PIPE BLANKS AMBULATED 1 LAP AROUND MED/SURG FLOOR PT TOLERATED WELL. PT HAS NO CONCERNS AT THIS TIME. PT RETURNED TO BED HAS CALL LIGHT WITHIN REACH.
[2024-07-21] MEDS ORDERED: hydroCHLOROthiazide 25 MG TAB PO SCH (19:45)
[2024-07-21] MEDS ORDERED: LOSARTAN POTASSIUM 100 MG TAB PO SCH (19:45)
--- NOTE | 2024-07-21 19:51 | NUR ---
Pt report received from GERONIMO Segovia and GERONIMO Villanueva. Pt is resting in bed, on her right side, television on, and she appears to be tearful. When asked what her pain level is, she states that it is a 9 out of 10 in the left flank. Advised the pt that I will review her med list and return for assessment. White board updated at this time.
--- NOTE | 2024-07-21 19:54 | NUR ---
Pt report received from GERONIMO Segovia and GERONIMO Nathan. Pt is sitting up in bed, A&O x4, watching television. Pt denies any needs at this time. Advised pt that I would like to have her ambulate the hallways one more time before bedtime, to which she agreed. Pt taken off CPOX (greater than 24 hours post op). IVF running at ordered rate. White board updated. Call light in reach.
--- NOTE | 2024-07-21 20:47 | NUR ---
Pt ambulating hallway at this time with Mary Brown. Pt reports pain is minimal at this time.
--- NOTE | 2024-07-21 20:54 | NUR ---
PT WANTED TO GO FOR A WALK. JIG BOX OPERATOR SBA WITH FWW FOR 1 LAP AROUND UNIT. PT NO WBACK IN BED AND WANTED TO SIT AT EDGE OF BED FOR A BIT BEFORE PUTTING SCDS BACK ON. PT STATES NO FURTHER NEEDS AT THIS TIME. CALL LIGHT WITHIN REACH.
--- NOTE | 2024-07-21 22:07 | NUR ---
In with pt for med administration per emar. Pt is sitting up at edge of bed, watching television. IV Merrem started per emar. Pt denies any needs at this time. SCD's placed on pt and turned on. Call light in reach.
[2024-07-22] VITALS (9 sets, daily range): BP systolic 137–188; BP diastolic 62–91
--- NOTE | 2024-07-22 00:27 | NUR ---
In with pt for IV pump alarming. Alarm for pt side occlusion. IV Pump restarted, new bag of LR hung and running at ordered rate per emar. IV site is patent, no leaking, no redness, no swelling, no pt c/o burning or pain. Old IV site still slightly red and swollen, pt reports tenderness there. TV on, Vivar cath bag emptied of 750ml clear yellow urine. Pt declines offer for eye masks, ear plugs, or sound machine. Call light in reach.
--- NOTE | 2024-07-22 02:17 | NUR ---
In with pt for med administration per emar. Pt opened her eyes as I entered the room. She reports, initially, her pain is "none". Then as I was leaving, stated her pain is 3 out of 10, but that she's comfortable and will try to go back to sleep. Call light in reach.
--- NOTE | 2024-07-22 02:30 | NUR ---
CARE ASSUMED OF PT, REPORT RECEIVED FROM HENRIK MELTON.
--- NOTE | 2024-07-22 04:00 | NUR ---
PT CONT TO REST WITH EYES CLOSED, RESP EVEN AND UNLABORED.
--- NOTE | 2024-07-22 05:49 | NUR ---
ANIMAL CARE SPECIALIST TOOK PT V.S, DRAINED AND RESET DELMAR ( 10 ML OUT), RECORDED VOID OUTPUT ( 1100) AND HELPED PT TO BATH ROOM AND BACK TO BED.
--- NOTE | 2024-07-22 06:00 | NUR ---
IN TO DO ASSESSMENT AND ATTEMPT TO GET PT UP TO CHAIR. SHE REFUSES TO GET UP AT THIS TIME BUT DOES AGREE TO PLAN TO GET UP IN ONE HOUR. PT STATES SHE DID NOT GET MUCH SLEEP LAST NIGHT.
[2024-07-22 07:02] LABS: BASOPHILS 0.4 % (0-2); EOSINOPHILS 6.5 % (0-6); HEMATOCRIT 27.2 % (35.0-50.0); HEMOGLOBIN 9.6 g/dL (12.0-18.0); LYMPHOCYTES 9.7 % (24-44); MCH 32.9 (27-36); MCHC 35.4 g/dl (30-36); MCV 92.9 fl (81-99); MONOCYTES 6.6 % (0-12); NEUTROPHILS 76.8 % (39-80); PLATELET COUNT 381 K/uL (140-440); RBC 2.92 M/ul (4.3-5.7); RDW 13.8 (10.5-15.0)
[2024-07-22 07:10] LABS: ANION GAP 11.5 (7-21); BUN/CREATININE RATIO 9.91 (6.0-28.6); CALCIUM 8.6 mg/dL (8.5-10.1); CREATININE, SERUM 1.21 mg/dL (0.55-1.02); MAGNESIUM 1.4 mg/dL (1.8-2.4); POTASSIUM 2.5 mmol/L (3.5-5.1)
--- NOTE | 2024-07-22 07:15 | NUR ---
PT AWAKENS EASILY FOR SHIFT REPORT AND PLAN TO GET UP TO WALK/GET IN CHAIR. PT VERY RELUCTANT TO GET UP, DOES AGREE TO GO FOR A WALK AFTER BREAKFAST AND GET INTO CHAIR NOW. TYLENOL GIVEN FOR BACK PAIN. PT UP TO CHAIR, STEADY ON FEET. CALL LIGHT IN REACH.
--- NOTE | 2024-07-22 07:36 | NUR ---
RECIEVED SHIFT REPORT FROM GERONIMO MERIDA. PT IS AWAKE IN BED, STATES DISCOMFORT IN THE BACK NO DIFFERENT THAN WHAT SHE WAS FEELING YESTERDAY. PT AGREED TO GET INTO THE RECLINER AND WALK AFTER BREAKFAST. CALL LIGHT IN REACH.
--- NOTE | 2024-07-22 08:25 | NUR ---
MORNING ASSESSMENT COMPLETE. PT IS SITTING IN RECLINER, EATING AND TOLERATING FULL LIQUID MEAL. STATES 4/10 PAIN, IN BACK, TOLERABLE. BOWELS ACTIVE, HAS FLATUS. DELMAR IN PLACE DRAINING SCANT SEROUS DRAINAGE. DENIES NEEDS AT THIS TIME. CALL LIGHT IN REACH.
--- NOTE | 2024-07-22 09:00 | NUR ---
Spoke with Kaci, she denies any needs and plans on walking more today. She is up in a chair in the room.
[2024-07-22] MEDS ORDERED: POTASSIUM CHLORIDE 10 MEQ TABCR PO ONE (09:15)
[2024-07-22] MEDS ORDERED: MAGNESIUM SULFATE 2 GM/50 ML BAG IV ONE (09:15)
--- NOTE | 2024-07-22 11:35 | NUR ---
PT NOT AVAILABLE FOR VISIT. PROVIDED PRAYER.
--- NOTE | 2024-07-22 11:51 | NUR ---
PT SALINE LOCKED AT THIS TIME. RESTING IN BED, DENIES NEEDS. CALL LIGHT IN REACH
--- NOTE | 2024-07-22 12:46 | NUR ---
PT WALKING AROUND ROOM, STEADY ON FEET. DENIES COMPLAINTS. CALL LIGHT IN REACH.
[2024-07-22] MEDS ORDERED: ACETAMINOPHEN 500 MG TAB PO PRN (15:15)
--- NOTE | 2024-07-22 16:14 | NUR ---
PATIENT HAS DONE TWO LAPS AROUND MED SURG THIS SO FAR.
--- NOTE | 2024-07-22 17:16 | NUR ---
PT IV INFILTRATED DURING ABX. THIS RN INSERTED A NEW IV, RECONNECTED ABX TO CONTINUE ADMINISTERING. PT DENIES NEEDS. CALL LIGHT IN REACH
--- NOTE | 2024-07-22 19:05 | NUR ---
REPORT REC'D FROM CJ. PT RESTING COMFORTABLY IN BED. CALL MANUEL IN REACH, BED IN LOW POSITION AND LOCKED. SR UP X 3. PT C/O MILD PAIN, REQUESTING TYLENOL.
--- NOTE | 2024-07-22 21:14 | NUR ---
PT MEDICATED WITH 5MG IV APRESOLINE FOR ELEVATED BP. REPEAT BP 173/68
--- NOTE | 2024-07-22 23:04 | NUR ---
PT RESTING T/O SHIFT. BP DECREASED AFTER IV APRESOLINE. PT BACK PAIN ALSO DECREASED WITH TYLENOL. USING SPLINT PILLOW FOR COUGHING. NO ADDITIONAL C/O VOICED. SR UP X3, CALL MANUEL IN REACH, BED IN LOW POSITION AND LOCKED.
--- NOTE | 2024-07-22 23:22 | NUR ---
SON MARK CALLED AND ASKED TO BE TRANSFERRED TO pt ROOM, SON NOT ON CONTACT LIST-pt OKAY'D PHONE CALL AND SON TRANSFERRED TO pt ROOM.
--- NOTE | 2024-07-22 23:57 | NUR ---
Pt report received from GERONIMO Zapata.
[2024-07-23] VITALS (7 sets, daily range): BP systolic 123–179; BP diastolic 70–93
--- NOTE | 2024-07-23 01:40 | NUR ---
In with pt for med administration per emar. Pt is asleep in bed, turned slightly toward her right side, breathing is regular, even, and non-labored. Pt awakens easily to voice. Pt denies needs at this time. DELMAR drain with minimal amount of serous fluid, not emptied at this time. Will continue to reassess often. Side rails up x4, call light in reach.
--- NOTE | 2024-07-23 06:08 | NUR ---
DELMAR fluid amount is not significant enough to empty at this time. Total out for artists' booking representative is 10ml serous fluid.
--- NOTE | 2024-07-23 07:27 | NUR ---
RECIEVED SHIFT REPORT. PT IS RESTING IN BED, EYES CLOSED, BREATHING EVEN AND UNLABORED. CALL LIGHT IN REACH.
--- NOTE | 2024-07-23 08:42 | NUR ---
ELIOT CERRATO REPORTED TO THIS RN THAT PT IS REFUSING TO GET IN RECLINER, BUT IS AGREEING TO WALK AFTER BREAKFAST.
--- NOTE | 2024-07-23 09:07 | NUR ---
MORNING ASSESSMENT COMPLETE. PT IS LAYING IN BED, TEARFUL. PT BEGINS EXPRESSEING THE EMOTIONS OF HER DADS BIRTHDAY. PT DENIES ANY DISCOMFORT. DELMAR EMPTIED BY ELIOT CERRATO. 30ML SEROSANG IN COLOR. NO NEEDS AT THIS TIME. CALL LIGHT IN REACH.
--- NOTE | 2024-07-23 10:36 | NUR ---
PATIENT AND I WALKED TWO AND HALF LAPS AROUND MED SURG. WHEN WE GOT BACK TO HER ROOM PATIENT ASKED FOR SOME COFFEE WITH TWO CREAMS AND ONE SUGAR. PATIENT IS SITTING UP IN HER CHAIR.
--- NOTE | 2024-07-23 12:30 | NUR ---
PT AWAKE IN BED, DENIES NEEDS. CALL LIGHT IN REACH
[2024-07-23 13:33] LABS: ANION GAP 13.9 (7-21); BUN/CREATININE RATIO 11.45 (6.0-28.6); CALCIUM 8.9 mg/dL (8.5-10.1); CREATININE, SERUM 1.31 mg/dL (0.55-1.02); MAGNESIUM 1.5 mg/dL (1.8-2.4); POTASSIUM 2.9 mmol/L (3.5-5.1)
[2024-07-23] MEDS ORDERED: POTASSIUM CHLORIDE 10 MEQ TABCR PO ONE (14:00)
[2024-07-23] MEDS ORDERED: MAGNESIUM SULFATE 2 GM/50 ML BAG IV ONE (14:00)
--- NOTE | 2024-07-23 14:52 | NUR ---
IN ROOM WOUNDING WITH Ovidio BARNETT AND Maria BARNETT. PT IS SITTING IN RECLINER. DISCUSSED PLAN OF CARE. DELMAR TO BE REMOVED TODAY. WILL REDRAW LABS. PT DENIES NEEDS AT THIS TIME. CALL LIGHT IN REACH.
--- NOTE | 2024-07-23 15:00 | NUR ---
IN ROOM TO CHECK ON PATIENT, ASSESSED PT ABD, MIDLINE DRESSING REMOVED, HARDEEP INTACT. PT REMOVED DRESSING WHERE DELMAR TUBE WAS. NO BLEEDING NOTED TO SITE. PT DENIES NEEDS AT THIS TIME. CALL LIGHT IN REACH
--- NOTE | 2024-07-23 17:08 | NUR ---
WENT IN TO CHECK ON PATIENT TO SEE IF SHE NEEDED ANYTHING AND SHE SAID YES MORE ICE WATER AND A CUP OF COFFEE WITH ONE SUGAR AND TWO CREAMS. SHE ALSO HAS A VISITOR IN HER ROOM.
--- NOTE | 2024-07-23 17:23 | NUR ---
PT SITTING IN RECLINER, AWAKE. DENIES NEEDS AT THIS TIME. CALL LIGHT IN REACH.
--- NOTE | 2024-07-23 18:23 | NUR ---
PT EATING DINNER IN RECLINER, DENIES NEEDS. CALL LIGHT IN REACH.
--- NOTE | 2024-07-23 19:01 | NUR ---
SHIFT REPORT RECEIVED FROM FERMÍN MELTON, PT UP AMBULATING IN QUIROZ WITH BLOSSOM MCCABE, PT TOLERATING AMBULATION WELL.
--- NOTE | 2024-07-23 19:05 | NUR ---
PATIENT AND I DID ONE LAP AROUND MED SURG. THAN WE WALKED TO THE FRONT OF THE HOSPITAL AND BACK TO HER ROOM.
--- NOTE | 2024-07-23 20:12 | NUR ---
PT VS OBTAINED. FRESH WATER PROVIDED. PT DENIES FURTHER NEEDS AT THIS TIME.
--- NOTE | 2024-07-23 20:49 | NUR ---
PT AWAKE AND ALERT, ASSESSMENT COMPLETED, VS REVIEWED AND STABLE, PT MEDICATED WITH TYLENOL PER ORDER PER REQUEST FOR ABD PAIN 11/10, SL PATENT AND FLUSHES WELL RIGHT HAND, PT SITTING UP IN RECLINER, REPORTS SHE JUST HAD A STOOL, NOTED TO BE SOFT LIGHT BROWN, VOIDING WELL.
--- NOTE | 2024-07-23 22:53 | NUR ---
PT RESTING IN BED, DENIES NEEDS AT THIS TIME, STATES ONLY HER CHRONIC DISCOMFORT IN LEFT KNEE, BUT DENIES MEDICATION AT THIS TIME.
[2024-07-24] VITALS: BP 147/78
--- NOTE | 2024-07-24 00:05 | NUR ---
PT RESTING WITHOUT COMPLAINTS AT THIS TIME.
--- NOTE | 2024-07-24 01:20 | NUR ---
PT APPEARS TO SLEEP, LAYING ON RIGHT SIDE, RESP EVEN AND REG.
--- NOTE | 2024-07-24 02:15 | NUR ---
PT ASLEEP, AWAKEN FOR CARAFATE PER ORDER, PT DENIES NEED, ABD SURGICAL SITES INTACT AND WITHOUT DRAINAGE, ACTIVE BTS X 4, PT UP TO BR TO VOID, GAIT STEADY, PT DENIES NEEDS AT THIS TIME.
--- NOTE | 2024-07-24 03:35 | NUR ---
PT APPEARS TO SLEEP, RESP EVEN AND REG, WITHOUT DISTRESS.
--- NOTE | 2024-07-24 04:16 | NUR ---
Resting, eyes closed, no resp distress, O2 3LNC, NGT to LIWS, cpox at bedside
--- NOTE | 2024-07-24 04:18 | NUR ---
CALL LIGHT ANSWERED, pt REPORTS ABD PAIN RATES 8-10/10, PRN PAIN MEDICATION GIVEN-SEE EMAR. NO FURTHER NEEDS, CALL LIGHT IN REACH.
[2024-07-24 04:22] VITALS: BP 150/77
--- NOTE | 2024-07-24 04:22 | NUR ---
VS COMPLETED PER [facility] [place] [facility] DESKTOP PUBLISHING OPERATOR, REVIEWED AND NOTED TO BE STABLE AT THIS TIME.
--- NOTE | 2024-07-24 04:25 | NUR ---
Provided Pt with fresh ice water. Call light left in reach. No other needs expressed by Pt.
[2024-07-24 04:57] VITALS: BP 150/77
[2024-07-24 05:10] LABS: ANION GAP 13.1 (7-21); BUN/CREATININE RATIO 10.52 (6.0-28.6); CALCIUM 8.8 mg/dL (8.5-10.1); CREATININE, SERUM 1.33 mg/dL (0.55-1.02); MAGNESIUM 1.7 mg/dL (1.8-2.4); POTASSIUM 3.1 mmol/L (3.5-5.1)
--- NOTE | 2024-07-24 06:27 | NUR ---
PT APPEARS TO SLEEP, RESP EVEN AND REG, LAYING ON SIDE.
--- NOTE | 2024-07-24 07:20 | NUR ---
RECIEVED SHIFT REPORT FROM GERONIMO DAMON. PT IS RESTING IN BED, EYES CLOSED. BREATHING EVEN AND UNLABORED. CALL LIGHT IN REACH.
[2024-07-24 08:36] VITALS: BP 132/90
[2024-07-24 08:38] VITALS: BP 132/90
--- NOTE | 2024-07-24 08:48 | NUR ---
MORNING ASSESSMENT COMPLETE. PT IS SITTING ON THE EDGE OF THE BED EATING BREAKFAST. PT STATES 2/ ABD DISCOMFORT BUT TOLERABLE. DENIES ANY NEEDS. EAGER TO GO HOME TODAY. CALL LIGHT IN REACH.
--- NOTE | 2024-07-24 10:19 | NUR ---
THIS RN AND PT WALKED THE UNIT AND TO FRONT LOBBY. BACK IN ROOM. DENIES NEEDS. CALL LIGHT IN REACH
--- NOTE | 2024-07-24 12:32 | NUR ---
PT SITTING UP ON THE SIDE OF THE BED, DENIES NEEDS. CALL LIGHT IN REACH
[2024-07-24 13:11] VITALS: BP 147/68
[2024-07-24] MEDS ORDERED: AMOXICILLIN500 MG PO (13:39)
[2024-07-24] MEDS ORDERED: METRONIDAZOLE250 MG PO (13:39)
[2024-07-24] MEDS ORDERED: TAMSULOSIN HCL0.4 MG PO (13:40)
[2024-07-24] MEDS ORDERED: NICOTINE1 EAC2 TD (13:40)
[2024-07-24] MEDS ORDERED: PEPTO-BISMOL262 MG PO (13:42)
[2024-07-24] MEDS ORDERED: SUCRALFATE1 GM PO (13:42)
[2024-07-24] MEDS ORDERED: TYLENOL EXTRA500 MG PO (13:43)
[2024-07-24] MEDS ORDERED: POTASSIUM CHLO20 ME2 PO (13:57)
[2024-07-24] MEDS ORDERED: MAGNESIUM OXID400 M1 PO (13:57)
== END 2024-07-24 14:28 | disposition home or self-care (01) | DRG 326 ==
LOC: ED 18:01 → MS 21:42 → CCU 07-19 00:09 → MS 07-19 09:52
PROVIDERS: Emergency Medicine; Family Medicine; ADMIT Surgery; ATTEND Surgery
PROC: 0DQ90ZZ Repair Duodenum, Open Approach (ICD-10-PCS; principal; 2024-07-19)
DX: K26.5 Chronic or unspecified duodenal ulcer with perforation (principal); K65.0 Generalized (acute) peritonitis; K25.5 Chronic or unspecified gastric ulcer with perforation; F17.210 Nicotine dependence, cigarettes, uncomplicated; K21.9 Gastro-esophageal reflux disease without esophagitis; I10 Essential (primary) hypertension; E89.0 Postprocedural hypothyroidism; K29.80 Duodenitis without bleeding; E87.6 Hypokalemia; E83.42 Hypomagnesemia; Z98.51 Tubal ligation status; Z79.899 Other long term (current) drug therapy
CPT/HCPCS: 00790; 36415; 51702; 51798; 71045; 74176; 80048; 80053; 81001; 83690; 83735; 85025; 86850; 86900; 86901; 87088; 94668; 94760; 94762; A9270; J0131; J0330; J0360; J0461; J1100; J1160; J1171; J1720; J1885; J2185; J2250; J2270; J2371; J2405; J2470; J2704; J2765; J3010; J3475; J3480; J3490; J7030; J7050; J7060; J7121

== ENCOUNTER 2024-10-06 09:00 | Day surgery (SDC) | payer OTHER ==
[~2024-10-06] VITALS: Ht 167.6 cm; Wt 58.6 kg
[~2024-10-06 09:00] MED LIST changes: +CARVEDILOL25 MG PO; +IBLOOD GLUCOSE TEST STRIP 1 EA TEST VI PRN; +IMODIUM A-D2 M2 PO; +LACTATED RINGER'S 1,000 ML IV SCH; +LIDOCAINE HCL 1% 5 ML SDV INJ ONE; +LIDOCAINE HCL 4% 50 ML BTL TOP SCH; +LOSARTAN-HCTZ1 EAC2 PO; +MAGNESIUM OXID400 M1 PO; +MELATONIN10 M2 PO; +METRONIDAZOLE250 MG PO; +MIDAZOLAM HCL 5 MG/5 ML VIAL IV PRN; +NICOTINE1 EAC2 TD; +PEPTO-BISMOL262 MG PO; +POTASSIUM CHLO20 ME2 PO; +PRILOSEC OTC20 MG PO; +SIMVASTATIN20 MG PO; +SUCRALFATE1 GM PO; +TAMSULOSIN HCL0.4 MG PO; +TYLENOL EXTRA500 MG PO; +fentaNYL citrate 100 MCG/2 ML VIAL IV PRN
[2024-10-06 09:32] VITALS: BP 101/57
--- NOTE | 2024-10-06 09:39 | NUR ---
TO CALL SON. NO ONE WAITING.
--- NOTE | 2024-10-06 10:20 | NUR ---
warm blankets on. update given. iv patent.
[2024-10-06] MEDS ORDERED: MIDAZOLAM HCL 5 MG/5 ML VIAL ONE (11:36)
[2024-10-06] MEDS ORDERED: fentaNYL citrate 100 MCG/2 ML VIAL ONE (11:36)
--- NOTE | 2024-10-06 12:20 | NUR ---
10/06/24 1220 Danuta Finnegan 1216-PATIENT ARRIVED TO PACU ON 2L NC RR EVEN. PATIENT DROWSY LAYING LEFT LATERAL AROUSES TO VERBAL STIMULI DENIES PAIN OR NAUSEA. EASILY DOZES BACK TO SLEEP. IVF INFUSING
[2024-10-06 12:52] VITALS: BP 105/62
--- NOTE | 2024-10-07 08:21 | OR ---
[facility] [address], [place] [address] Signed DATE OF OPERATION: 10/06/2024 SURGEON: Taylor Barnett MD PREOPERATIVE DIAGNOSIS: History of pre-pyloric perforated ulcer status post laparoscopic with conversion to open omental patch July 19, 2024. POSTOPERATIVE DIAGNOSIS: Persistent pre-pyloric ulcer with ongoing healing. PROCEDURE: Esophagogastroduodenoscopy with biopsy. ANESTHESIA: Intravenous sedation; fentanyl 100 mcg and Versed 4 mg. INDICATION: This 64-year-old woman is a patient of Zion Santiago. She underwent laparoscopy with conversion to open laparotomy and omental patch (Janusz patch) of a pre-pyloric perforated ulcer on July 19, 2024. She was treated empirically for possible H pylori, though it was not proven that she had that. She has been on omeprazole and Carafate since that time. She is admitted at this time to undergo upper endoscopy to assure a test of cure regarding ulceration. She understands the risk of bleeding, infection, and perforation and wished to proceed. FINDINGS: The esophagus and duodenum were entirely normal as was much of the stomach. There did remain a pre-pyloric ulceration which has ongoing healing. No signs of bleeding and a healthy davalos white base. The ulcer was certainly less than a centimeter in size. CLOtest was negative. DESCRIPTION OF PROCEDURE: The patient was brought to the endoscopy suite and placed in lateral decubitus position and given topical lidocaine hypopharyngeal anesthesia. She was given intravenous sedation to the point of slurred speech and nystagmus with full cardiopulmonary monitoring. A bite block was placed. An Olympus video upper endoscope was passed in the hypopharynx. The vocal cords were normal. Esophagus throughout its length was normal as was essentially all the stomach. Electronically Signed By: TAYLOR BARNETT MD 10/07/24 0821 PATIENT NAME: DERICK DE LA CRUZ OPERATIVE REPORT DATE OF : 58 REPORT #: [id number] PHYSICIAN: TAYLOR BARNETT MD PCP: ZION SANTIAGO PAC REPORT IS CONFIDENTIAL AND NOT TO BE RELEASED WITHOUT AUTHORIZATION [facility] [address], [place] [address] Signed There was a cleft consistent with a pre-pyloric ulcer. The scope was passed through the pylorus into the duodenum, which was normal. The scope was withdrawn and careful inspection of the cleft in the area of prior omental patch was examined and found to have a small, less than 1 cm ulcer with a davalos white base. There is no evidence of visible vessel or other problem. The scope was withdrawn a bit and biopsies were taken of the antrum for both CLINT and pathologic testing. Retroflexed view was undertaken showing a reasonable flap valve. The scope was carefully withdrawn and the remaining examination was normal. She was taken to the recovery room in good condition. CONCLUDING DIAGNOSIS: Persistent pre-pyloric ulcer. PLAN: Would continue PPI and Carafate at this time. We will see her back in the office in 6 to 8 weeks. Her CLOtest is thus far negative. Additional treatment for any H pylori would not be needed at this time. MD SUSI Abreu/KINSEY /[id number] cc: Zion Santiago PA-C Copies: ZION SANTIAGO ~ Electronically Signed By: TAYLOR BARNETT MD 10/07/24 0821 PATIENT NAME: DERICK DE LA CRUZ OPERATIVE REPORT DATE OF : 58 REPORT #: [id number] PHYSICIAN: TAYLOR BARNETT MD PCP: ZION SANTIAGO REPORT IS CONFIDENTIAL AND NOT TO BE RELEASED WITHOUT AUTHORIZATION
--- NOTE | 2024-10-10 10:36 | PATH ---
[facility] [address] [facility] [place] [place] [address] Signed SPECIMEN(S): A ANTRUM/PYLORUS BIOPSY SPECIMEN SOURCE: A. ANTRUM/PYLORUS BIOPSY CLINICAL HISTORY: History of gastric ulcer and perforation. FINAL PATHOLOGIC DIAGNOSIS: Stomach, antrum, biopsy: - Gastric antral mucosa with no significant pathologic changes - Negative for Helicobacter pylori with HE stains BRP MICROSCOPIC EXAMINATION: Histologic sections of all submitted blocks are examined by light microscopy. These findings, together with the gross examination, support the pathologic diagnosis. GROSS DESCRIPTION: The specimen, labeled and designated "CamrynDenice, antrum/pylorus biopsy," is received in formalin and consists of two koehler soft tissue fragments, ranging from 0.4-0.7 cm. Entirely submitted in (A1). AB (under the direct supervision of a pathologist) The Gross Description was prepared using a voice recognition system. The report was reviewed for accuracy; however, sound-alike word errors, addition and/or deletions may occur. If there is any question about this report, please contact Client Services. ADDITIONAL NOTES: Immunohistochemical and/or in situ hybridization studies if performed in this case included appropriate positive controls that reacted as expected. This test was developed and its performance characteristics determined by [facility]. It has not been cleared or approved by the U.S. Food and Drug Administration. The FDA has determined that such clearance or approval is not necessary. This test is used for clinical purposes. It should not be regarded as investigational or for research. [facility] is certified under the Clinical Laboratory Improvement Amendments of 1988 (CLIA) as qualified to perform high complexity clinical laboratory testing. PATIENT NAME: DERICK DE LA CRUZ PATHOLOGY DATE OF : 58 REPORT #: [id number] PHYSICIAN: MAKAYLA PATHOLOGY PCP: ZION KNOTT PAC REPORT IS CONFIDENTIAL AND NOT TO BE RELEASED WITHOUT AUTHORIZATION [facility] [address] [facility] [place], [place] [address] Signed PERFORMING LABORATORY: Technical component was performed by [facility], [address] [place] [address] (CLIA# [id number]). Professional interpretation was performed by [facility] - [facility], [address] [place] [address] (CLIA#: [id number]). Diagnostician: Martell Casey MD Pathologist Electronically Signed 10/10/2024 Copies: ~ PATIENT NAME: DERICK DE LA CRUZ PATHOLOGY DATE OF : 58 REPORT #: [id number] PHYSICIAN: MAKAYLA ANTONIO PCP: ZION KNOTT PAC REPORT IS CONFIDENTIAL AND NOT TO BE RELEASED WITHOUT AUTHORIZATION
== END 2024-10-06 13:00 | disposition home or self-care (01) ==
LOC: DS 09:00
PROVIDERS: ATTEND Surgery
PROC: 0DB68ZX Excision of Stomach, Via Natural or Artificial Opening Endoscopic, Diagnostic (ICD-10-PCS; principal; 2024-10-06 10:00)
DX: K25.9 Gastric ulcer, unspecified as acute or chronic, without hemorrhage or perforation (principal); E03.9 Hypothyroidism, unspecified; I10 Essential (primary) hypertension; E78.5 Hyperlipidemia, unspecified; Z79.899 Other long term (current) drug therapy
CPT/HCPCS: 99153; G0500; J2250; J3010; J7121